=== PATIENT | male | born 1985 | race Caucasian/White ===

== ENCOUNTER → 2021-03-02 09:16 | Outpatient (CLI) | payer OTHER, SELFPAY ==
--- NOTE | 2021-03-02 | DI.US.S_ITS ---
ULTRASOUND OF LEFT BREAST: 03/02/2021 CLINICAL: Palpable left breast lump. Comparison is made to exam dated: 03/02/2021 [facility]. Color flow and real-time ultrasound of the left breast were performed. Dominguez scale images of the real-time examination were reviewed. No significant abnormalities were seen sonographically in the left breast or tissues inferior to the left breast. Specifically, no finding to correspond to the patient's palpable abnormality. IMPRESSION: NEGATIVE There is no sonographic correlate to the patient's palpable abnormality and no evidence of malignancy. Clinical follow up for the palpable abnormality as needed. Findings and recommendations were conveyed to the patient at time of exam. This exam was interpreted at Station ID: [id number]. Electronically Signed By: Gianna spivey/:03/02/2021 11:28:56 letter sent: Normal Exam Ultrasound BI-RADS: 1 Negative
--- NOTE | 2021-03-02 | DI.MG.S_ITS ---
MALE BILATERAL DIGITAL DIAGNOSTIC MAMMOGRAM 3D/2D: 03/02/2021 CLINICAL: Left breast lump. Baseline exam. No prior exams were available for comparison. No significant masses, calcifications, or other findings are seen in either breast. Below the breast tissue along the chest wall, corresponding to the palpable area, there is a slight contour bulge of the skin with underlying normal subcutaneous fat appearance. IMPRESSION: INCOMPLETE: NEEDS ADDITIONAL IMAGING EVALUATION There is no abnormality seen in the left breast to correspond with the palpable abnormality at 6 o'clock and thus it may represent a lipoma. Ultrasound is recommended for full evaluation of this area. This was performed immediately following this exam. This exam was interpreted at Station ID: [id number]. NOTE: For mammograms, a report in lay terms will be sent to the patient. Approximately 15% of breast malignancies will not be visualized mammographically. In the management of a palpable breast mass, a negative mammogram must not discourage biopsy of a clinically suspicious lesion. Electronically Signed By: Gianna spivey/:03/02/2021 10:03:29 ACR BI-RADS Category 0: Incomplete [id number]
== END ==
PROVIDERS: Referring Provider Internal Medicine; Visit Provider Internal Medicine
DX: R92.2 Inconclusive mammogram (principal); N63.20 Unspecified lump in the left breast, unspecified quadrant
CPT/HCPCS: 76642; 77066; G0279

== ENCOUNTER → 2021-03-16 09:23 | Outpatient (CLI) | payer OTHER, SELFPAY ==
[2021-03-16 09:51] LABS: COVID19 -Nasal RAPID Negative (Negative)
== END ==
PROVIDERS: Visit Provider Nurse Practitioner
DX: Z20.822 Contact with and (suspected) exposure to COVID-19 (principal)
CPT/HCPCS: 87635

== ENCOUNTER → 2025-06-14 11:33 | Outpatient (CLI) | payer OTHER, SELFPAY ==
--- NOTE | 2025-06-14 12:38 | DI.CT.S_ITS ---
PROCEDURE: CT ABDOMEN PELVIS W CON INDICATIONS: ulcerative colitis flare TECHNIQUE: After the administration of intravenous contrast, axial sections acquired from the lung bases to the pubic symphysis. Coronal and sagittal reformats were performed. For radiation dose reduction, the following was used: automated exposure control, adjustment of mA and/or kV according to patient size. COMPARISON: [facility], CT, CT ABDOMEN PELVIS WITH CONTRAST, 12/31/2023, 10:25. FINDINGS: Image quality: Diagnostic. Lower Chest: No significant findings. ABDOMEN: Liver: No solid mass. Hepatic steatosis. Gallbladder: No radiopaque gallstones or wall thickening. Biliary ducts: No biliary dilation. Pancreas: No ductal dilation. Spleen: Size is within normal limits. Adrenal Glands: No adrenal nodules. Kidneys and Ureters: No hydronephrosis. No solid mass. No complex renal cystic lesion which requires follow up. Stomach and Bowel: Normal colonic caliber, without significant wall thickening. Normal appendix. Peritoneum: No abnormal intraperitoneal fluid. No free air. Ventral Wall: No significant ventral hernia. Abdominal Nodes: No retroperitoneal or mesenteric adenopathy by size criteria. Vessels: Aorta and inferior vena cava are normal in size. PELVIS: Pelvic Organs: Unremarkable. Bladder: Decompressed, limiting evaluation. Pelvic Nodes: No enlarged lymph nodes. Miscellaneous: No inguinal hernias are seen. Bones: No aggressive osseous abnormality. IMPRESSION: 1. No acute findings within the abdomen or pelvis. No significant colonic wall thickening or inflammation is appreciated. 2. Hepatic steatosis. Dictated by: Espinoza Alcantar M.D. on 06/14/2025 at 13:45 Approved by: Espinoza Alcantar M.D. on 06/14/2025 at 13:49
== END ==
PROVIDERS: PCP Family Medicine; Referring Provider Physician Assistant; Visit Provider Physician Assistant
DX: K51.50 Left sided colitis without complications (principal); K76.0 Fatty (change of) liver, not elsewhere classified
CPT/HCPCS: 74177; Q9967